=== PATIENT | male | born 1970 | race Caucasian/White ===

== ENCOUNTER 2016-11-25 11:51 | Day surgery (SDC) | payer OTHER ==
[~2016-11-25] VITALS: Ht 167.6 cm; Wt 83.6 kg
[~2016-11-25 11:51] MED LIST: LACTATED RINGERS 1,000 ML IV ONE; OXYMETAZOLINE 0.05% NASAL SPRAY (AFRIN) 15 ML BTL ONE; SODIUM CHLORIDE FLUSH 3 ML SYR ONE
[2016-11-25 12:08] VITALS: BP 134/98
[2016-11-25] MEDS ORDERED: ALFENTANIL 1,000 MCG/2 ML AMP IV ONE (12:39)
[2016-11-25] MEDS ORDERED: SUCCINYLCHOLINE 20 MG/ML 10 ML VIAL ONE (12:39)
[2016-11-25] MEDS ORDERED: PROPOFOL 20 ML IV ONE (12:39)
[2016-11-25] MEDS ORDERED: OXYMETAZOLINE 0.05% NASAL SPRAY (AFRIN) 15 ML BTL SCH (13:15)
[2016-11-25] MEDS ORDERED: SODIUM CHLORIDE FLUSH 3 ML SYR IV SCH (13:15)
[2016-11-25] MEDS ORDERED: LACTATED RINGERS 1,000 ML IV SCH (13:15)
[2016-11-25] MEDS ORDERED: morphine INJ 2 MG/ML 1 ML SYRINGE IV PRN (15:10)
[2016-11-25] MEDS ORDERED: ONDANSETRON 2 MG/ML (Z0FRAN) 2 ML VIAL IV PRN (15:10)
[2016-11-25] MEDS ORDERED: TRIAMCINOLONE ACET 40 MG/ML (KENALOG-40) 1 ML VIAL ONE (15:17)
[2016-11-25] MEDS ORDERED: ONDANSETRON 2 MG/ML (Z0FRAN) 2 ML VIAL ONE (15:57)
[2016-11-25] MEDS ORDERED: diphenhydrAMINE 50 MG/ML INJ (BENADRYL) ONE (15:57)
[2016-11-25 16:16] VITALS: BP 159/100
[2016-11-25] MEDS ORDERED: HYDROXYZINE 25 MG/ML IM ONE (16:40)
[2016-11-25] MEDS ORDERED: MEPERIDINE 50 MG/ML (DEMEROL) SYRINGE IM ONE (16:40)
[2016-11-25] MEDS ORDERED: HYDROcodone/APAP 5 MG/325 MG (NORCO) TAB PO PRN (16:50)
--- NOTE | 2016-11-25 16:50 | NUR ---
DR. ARGUELLO CALLED TO VERIFY PO PAIN MED ORDERS. WOULD LIKE 3RD FLOOR TO CALL AT 1900 WITH UPDATE ON PATIENT'S CONDITION OR BEFORE 1900 IF PATIENT IS READY TO GO HOME.
[2016-11-25 16:55] VITALS: BP 156/88
--- NOTE | 2016-11-25 16:55 | NUR ---
REPORT CALLED TO SWATI HUNG ON 3RD FLOOR. PATIENT TO BE TRANSFERRED VIA CART. RAILS UP X2. FAMILY TO ACCOMPANY. BELONGINGS WITH FAMILY.
--- NOTE | 2016-11-25 17:08 | NUR ---
Pt arrives to unit via cart accompanied by Lexi Chatman, RN and family. Pt has a significant amount of drainage on bandage on nares upon arrival. Pt requests to use toilet. Ambulates to toilet with two assist, very unsteady. Pt's nares begin to drip blood. Pt begins violently dry heaving/vomiting when sitting on toilet. Approx 50cc bloody emesis expelled. Once vomiting ceased, pt was transferred to bed with two assist. Bandage changed to nares. Pt endorses feeling a little better. Pt settled in bed, family brought in at this time. Post op VS initiated. SL intact.
[2016-11-25 17:18] VITALS: BP 142/92
--- NOTE | 2016-11-25 17:34 | NUR ---
PATIENT CONTINUES TO HAVE NAUSEA AND PAIN. PATIENT CONTINUES TO RATE PAIN /10. CRIES AT TIMES STATING HE IS HURTING. PATIENT'S CONDITION REPORTED TO DR. ARGUELLO. ORDERS RECEIVED. SEE EMAR. DR. ARGUELLO OK TO SEND PATIENT TO 3RD FLOOR UNTIL NAUSEA AND PAIN ARE CONTROLLED. Addendum: 11/25/16 at 1737 by Yumi Ramirez RN PREVIOUS NOTE TIME 1640.
[2016-11-25 18:00] VITALS: BP 134/82
--- NOTE | 2016-11-25 18:06 | NUR ---
Patient endorses feeling a little bit better, but does not want clear liquids at this time. Sipping on ice water at this time.
--- NOTE | 2016-11-25 19:46 | NUR ---
Pt requested to go home. Stated he is feeling better. came out of pt's room approx 30 mins later and said "he's fast asleep now, so he'll have to stay overnight. We've been waiting for 30 mins." Informed I would call the doctor and work on getting him home and apologized for things taking so long since it is shift change. states "I understand that but it's been 30 mins". Anaert notified of pending discharge. PRN [place] 1 tab provided at this time prior to DC. SL removed with catheter tip intact. Pressure applied. Pt changed into home clothes. Pt's family asked multiple times "are you sure you're okay to go? Are you sure you don't need to stay overnight?". Pt states multiple times "no I'm fine, I feel better". Discharge instructions reviewed with patient and family, both demonstrate understanding. Script and appt card provided. Belongings and DC instructions sent with patient. Pt dismissed at this time via w/c accompanied by Cheryl Gray CNA and family.
[2016-11-25] MEDS ORDERED: HYPERTONIC SALINE IRRIGATION 1000 ML BTL IR SCH (21:00)
== END 2016-11-25 19:46 | disposition home or self-care (01) ==
LOC: ASC 11:51 → MED/SURG 17:08 → ASC 19:46
PROVIDERS: ATTEND Otolaryngology
DX: J34.2 Deviated nasal septum (principal); J32.2 Chronic ethmoidal sinusitis; J34.3 Hypertrophy of nasal turbinates; J32.0 Chronic maxillary sinusitis
CPT/HCPCS: 30130; 30520; 31255; 31267; J0330; J1200; J2175; J2270; J2405; J3301; J3410; J7120